=== PATIENT | male | born 1985 | race Hispanic/Latino ===

== ENCOUNTER 2017-09-13 12:41 | Emergency (ER) | payer SELFPAY ==
[2017-09-13 13:10] LABS: #Basophils 0.1 thou/uL (0.0-0.2); #Eosinphils 0.1 thou/uL (0.0-0.7); #Lymphocytes 5.5 thou/uL (1.20-3.40); #Monocytes 0.6 thou/uL (0.11-0.59); #Neutrophils 8.3 thou/uL (1.40-6.50); %Basophils 0.8 % (0.0-1.0); %Eosinophils 0.4 % (0.0-10.0); %Lymphocytes 37.9 % (21.0-51.0); %Monocytes 3.9 % (0.0-10.0); Hemoglobin 17.4 g/dL (14.0-18.0); Mean Corpuscular HGB CONC 34.5 g/dL (32.0-36.0); Mean Corpuscular Hemoglobin 31.6 pg (27.0-31.0); Mean Corpuscular Volume 91.6 fl (80.0-94.0); Mean Platelet Volume 7.2 fL (7.4-10.4); Platelet Count 269 thou/uL (130-400); RBC Distribution Width 11.8 % (11.5-14.5); Red Blood Cell (RBC) Count 5.51 mill/uL (4.70-6.10); White Blood Cell (WBC) Count 14.6 thou/uL (4.8-10.8)
[2017-09-13 13:28] LABS: CK (CPK) 72 U/L (30-200); CRP (Inflammatory) Less than 0.50 mg/dL (= or < 0.5)
[2017-09-13] MEDS ORDERED: ISOVUE-370 76%-LOCM 1 ML ONE (16:34)
[2017-09-13 17:10] LABS: Lactic Acid 2.3 mmol/L (0.5-2.2)
[2017-09-13] MEDS ORDERED: Ondansetron HCl/PF 4 MG/2 ML Vial ONE (17:30)
[2017-09-13] MEDS ORDERED: Meclizine HCl 25 MG TAB ONE (17:30)
--- NOTE | 2017-09-13 19:00 | CT ---
CT ABDOMEN AND PELVIS WITH IV CONTRAST: 09/13/17 Multiple axial tomograms obtained through the abdomen and pelvis with IV enhancement. HISTORY: Abdominal pain. Headache, dizziness and nausea and vomiting. Lungs bases are clear. Liver, spleen, and pancreas unremarkable. Adrenal glands and kidneys are unremarkable. Small bowel lo ops appear normal. Appendix appears normal. Colon unremarkable. Kidneys are unremarkable with no hydronephrosis. Aorta is unremarkable. No adenopathy. IMPRESSION: No evidence of acute process. POS: [facility]
[2017-09-13 19:03] LABS: Bilirubin Negative (Negative); Blood, Urine Negative (Negative); Clarity TURBID (Clear); Glucose, Urine (Dipstick) Negative (Negative); Leukocyte Negative (Negative); Nitrite Negative (Negative); Protein, Urine (Dipstick) Trace mg/dL (Neg-Trace); Specific Gravity, Urine 1.023 (1.002-1.036)
[2017-09-13 19:57] LABS: Lactic Acid 1.6 mmol/L (0.5-2.2)
== END 2017-09-13 20:49 | disposition home or self-care (01) ==
LOC: ERS 12:41
DX: R10.13 Epigastric pain (principal); R11.2 Nausea with vomiting, unspecified
CPT/HCPCS: 36415; 74177; 81003; 82550; 83605; 85025; 86140; 96361; 96374; J2405

== ENCOUNTER 2018-01-18 10:37 | Inpatient (IN) | payer SELFPAY ==
[2018-01-18 11:58] LABS: Hemoglobin 15.3 g/dL (14.0-18.0); Mean Corpuscular HGB CONC 34.2 g/dL (32.0-36.0); Mean Corpuscular Hemoglobin 31.6 pg (27.0-31.0); Mean Corpuscular Volume 92.4 fL (78.0-98.0); Mean Platelet Volume 7.1 fL (7.4-10.4); Platelet Count 221 thou/uL (130-400); RBC Distribution Width 11.7 % (11.5-14.5); Red Blood Cell (RBC) Count 4.86 mill/uL (4.70-6.10); White Blood Cell (WBC) Count 18.9 thou/uL (4.8-10.8)
[2018-01-18 12:16] LABS: ALT (SGPT) 12 U/L (8-55); AST (SGOT) 13 U/L (5-34); Albumin 3.9 g/dL (3.5-5.0); Alkaline Phosphatase 77 U/L (40-150); Anion Gap 14 mmol/L (10-20); BUN (Urea Nitrogen) 8 mg/dL (8.9-20.6); Bilirubin, Total 1.1 mg/dL (0.2-1.2); Calc. Creatinine Clearance 0 mL/min (70-130); Calcium 9.1 mg/dL (7.8-10.44); Carbon Dioxide 22 mmol/L (22-29); Chloride 107 mmol/L (98-107); Estimated GFR-MDRD 82; Globulin 2.5 g/dL (2.4-3.5); Glucose 185 mg/dL (70-105); Potassium 3.7 mmol/L (3.5-5.1); Protein, Total 6.4 g/dL (6.0-8.3); Sodium 139 mmol/L (136-145)
[2018-01-18 12:18] LABS: Band 15 % (5-11); Lymphocytes 7 % (21-51); MDiff Complete? YES; Monocytes 2 % (0-10); Neutrophil 62 % (42-75); PLT Morphology Comment Appears Adequate; RBC Morphology Normal; Reactive Lymphocytes 14 % (0-10)
[2018-01-18 13:08] LABS: Bilirubin Negative (Negative); Blood, Urine Small (Negative); Clarity CLEAR (Clear); Glucose, Urine (Dipstick) 100 mg/dL (Negative); Leukocyte Negative (Negative); Nitrite Negative (Negative); Protein, Urine (Dipstick) Trace mg/dL (Neg-Trace); Specific Gravity, Urine 1.023 (1.002-1.036)
[2018-01-18] MEDS ORDERED: Iopamidol 370 76% 50 ML VIAL FS ONE (13:09)
[2018-01-18] MEDS ORDERED: ISOVUE-370 76%-LOCM 1 ML ONE (13:09)
[2018-01-18 13:11] LABS: Bacteria/HPF None Seen HPF (None Seen); Hyaline Casts/LPF 0-3 HYALINE CAST LPF (0-3 Hyaline); Squamous Epithelial 0-3 HPF (0-3); WBC/HPF 0-3 HPF (0-3)
--- NOTE | 2018-01-18 14:18 | CT ---
CT OF THE ABDOMEN AND PELVIS WITH CONTRAST: Comparison: None. History: Rectal pain since Monday. Patient woke up this morning with a fever and a ball on his buttoc k cheek. Technique: Multiple contiguous axial images were obtained in a CT of the abdomen and pelvis with cont rast. PO contrast was administered. Coronal reformats were performed. FINDINGS: The liver, gallbladder, kidneys, adrenal glands, spleen, and pancreas are unremarkable. No free air, free fluid, or stranding changes are seen in the abdomen or pelvis. The large and small bowel are unremarkable. The appendix is normal. No abdominal or pelvic lymphadeno gabrielle are seen. There appears to be a small fluid collection to the left of midline in the perianal region measuring 2.7 x 0.9 cm in size. This may represent a small perirectal abscess. The visualized inferior thorax i s unremarkable. The bones are unremarkable. IMPRESSION: Left perirectal abscess. POS: [facility]
--- NOTE | 2018-01-18 15:19 | HP ---
PRIMARY CARE PHYSICIAN: [facility] call admission. REASON FOR ADMISSION: Sepsis, left perirectal abscess. HISTORY OF PRESENT ILLNESS: A 32-year-old male who came to emergency room with a complaint of rectal pain and fever since Monday. He has severe throbbing pain in his rectal area which is gett ing worse with sitting position. He is not able to sit longer because of pain with defecation. His pain is also getting worse. He was having fever intermittently at home every day. Finally, he decid ed today to come to the emergency room for evaluation. His maximum measured temperature at home was 101. He feels something ball type of thing in his rectal area. He tried to take over the counter me dication, but that did not help his pain. His pain intensity is about 8/10. He denies any trauma. He denies any nausea, vomiting or diarrhea. He denies any hematochezia. He denies any UTI symptoms. REVIEW OF SYSTEMS: The following complete review of systems was negative, unless otherwise mentioned in the HPI or below: Constitutional: Weight loss or gain, ability to conduct usual activities. Skin: Rash, itching. Eyes: Double vision, pain. ENT/Mouth: Nose bleeding, neck stiffness, pain, tenderness. Cardiovascular: Palpitations, dyspnea on exertion, orthopnea. Respiratory: Shortness of breath, wheezing, cough, hemoptysis, fever or night sweats. Gastrointestinal: Poor appetite, abdominal pain, heartburn, nausea, vomiting, constipation, or diarr hea. Genitourinary: Urgency, frequency, dysuria, nocturia. Musculoskeletal: Pain, swelling. Neurologic/Psychiatric: Anxiety, depression. Allergy/Immunologic: Skin rash, bleeding tendency. Please see my HPI for pertinent positive and negative. All other review of systems reviewed and nega tive except as mentioned in the HPI. PAST MEDICAL HISTORY: Reviewed and negative. Crohn's disease or below pilonidal cyst. PAST SURGICAL HISTORY: The patient denies any previous surgical history. PAST PSYCHIATRIC HISTORY: Reviewed and negative. FAMILY HISTORY: No strong family history of premature coronary artery disease, stroke or cancer. SOCIAL HISTORY: Patient is . He is working in construction. No history of tobacco, alcohol or illicit drug abuse. ALLERGIES: No known drug allergy. CURRENT HOME MEDICATIONS: The patient is not taking any prescribed or non-prescribed medication. EMERGENCY ROOM COURSE: Reviewed. PHYSICAL EXAMINATION: VITAL SIGNS: Currently, blood pressure 104/67, pulse 89, respiratory rate 18, temperature 98.2, satu ration 97% on room air, weight 70.3 kilograms. GENERAL: Patient is currently alert, awake, in no obvious acute distress. HEAD: Normocephalic, atraumatic. EYES: Pupils round, reactive to light. Extraocular muscle intact. ENT: Oropharynx within normal limits. Moist mucous membranes. No oral lesion, no pharyngeal erythe ma, no exudate. NECK: Supple, no JVD, no thyromegaly, no carotid bruit, no jugular venous distention. LUNGS: Clear to auscultation without any rhonchi or rales. CARDIAC: S1, S2 regular. No murmur, no gallop, no rub. ABDOMEN: Soft, bowel sounds present, nontender, nondistended. No organomegaly, no mass, no suprapub ic tenderness. BACK: Examination unremarkable, no CVA tenderness. GENITOURINARY: Rectal examination done in the emergency room and that is why deferred. As per repor t, patient does have significant tenderness in the rectal area. EXTREMITIES: Upper extremity passive movements of all joints are normal. Lower extremities: No melyssa ma. Good peripheral pulsation. SKIN: No skin rash. HEMATOLOGICAL SYSTEM: No lymphadenopathy. PSYCHIATRIC: Normal affect. NEUROLOGIC: Nonfocal examination. IMAGING DATA AND SIGNIFICANT LABORATORY DATA: CT of the abdomen and pelvis done in the emergency brady which showed 2.7 cm x 0.9 cm left perirectal abscess. CBC: WBC 18.9, hemoglobin 15.3, platelet 22 1 with bandemia. BMP: Sodium 139, potassium 3.7, chloride 107, carbon dioxide 22, anion gap 14, BUN 8, creatinine 1.06, glucose 185, calcium 9.1. LFT: AST 13, ALT 12, alkaline phosphatase 77, albumi n 3.9. Urinalysis normal. ASSESSMENT AND PLAN/IMPRESSION: 1. Sepsis, likely due to left perirectal abscess. The patient has high-grade fever, leukocytosis wi th bandemia, meets sepsis criteria. Patient will be given broad spectrum antibiotic therapy with van comycin and Zosyn, as well as IV fluid and we will follow up on culture result and change antibiotic therapy accordingly. 2. Left perirectal abscess. The patient has deep left perirectal abscess. He has severe pain. Pat ient's pain will be controlled with morphine p.r.n. basis and [place] on a p.r.n. basis. We will give him empiric broad spectrum antibiotic therapy with vancomycin and Zosyn. General Surgery will be con sulted for evaluation for necessity of I&D. 3. Glucosuria and elevated blood sugar without previous history of diabetes. I will check hemoglobi n A1c and we will repeat fasting blood sugar with the morning labs. 4. Deep venous thrombosis prophylaxis, Lovenox 40 mg subcu daily. 5. Gastrointestinal prophylaxis, Pepcid 20 mg p.o. b.i.d. 6. Code status: The patient is FULL CODE. The patient is making his decision by himself. Disposition plan based on clinical course. We are expecting patient's stay in hospital more than 2 m idnights. Plan of care discussed with the patient and family member at bedside in the emergency room .
[2018-01-18] MEDS ORDERED: Acetaminophen 325 MG TAB PO PRN (15:55)
[2018-01-18] MEDS ORDERED: Ondansetron ODT 4 MG TAB SL PRN (15:55)
[2018-01-18] MEDS ORDERED: HYDROcodone/Acetaminophen 5/325 mg Tablet PO PRN ×2 (15:55)
[2018-01-18] MEDS ORDERED: Ondansetron HCl/PF 4 MG/2 ML Vial IVP PRN ×2 (15:55→16:19)
[2018-01-18] MEDS ORDERED: Piperacillin/Tazobactam 3.375 GM in Sodium Chloride 0.9% 100 ML IVPB SCH (16:00)
[2018-01-18] MEDS ORDERED: Artificial Tears 18 DROP/0.9 ML EA EYE PRN (16:19)
[2018-01-18] MEDS ORDERED: Mag-Al 1200 mg/1200 mg/30 ML UDCUP PO PRN (16:19)
[2018-01-18] MEDS ORDERED: Zolpidem Tartrate 5 MG TAB PO PRN (16:19)
[2018-01-18] MEDS ORDERED: Senokot 8.6 MG TAB PO PRN (16:19)
[2018-01-18] MEDS ORDERED: hydrALAZINE 20 MG/ML VIAL SLOW IVP PRN (16:19)
[2018-01-18] MEDS ORDERED: Morphine 4 MG/ML VIAL SLOW IVP PRN (16:19)
[2018-01-18] MEDS ORDERED: Eucerin (Mineral Oil/Petrolatum,White) 30 gm Jar TOP PRN (16:19)
[2018-01-18] MEDS ORDERED: Loratadine 10 MG TAB PO PRN (16:19)
[2018-01-18] MEDS ORDERED: Sodium Chloride 0.65% Nasal 44 ML BOT EA NARE PRN (16:19)
[2018-01-18] MEDS ORDERED: Ondansetron ODT 4 MG TAB PO PRN (16:19)
[2018-01-18] MEDS ORDERED: Chloraseptic Spray 180 ml Bottle PO PRN (16:19)
[2018-01-18] MEDS ORDERED: Loperamide HCl 2 MG CAP PO PRN (16:19)
[2018-01-18] MEDS ORDERED: Milk Of Magnesia 30 ML UDCUP PO PRN (16:19)
[2018-01-18] MEDS ORDERED: Diabetic Tussin 200 MG/10 ML UDCUP PO PRN (16:19)
[2018-01-18] MEDS: HYDROcodone/Acetaminophen 5/325 mg Tablet PO PRN ×2 (16:47→20:59)
[2018-01-18] MEDS: Sodium Chloride 0.9% 1,000 ML IV SCH (16:52)
[2018-01-18] MEDS ORDERED: Vancomycin HCl 1 GM in Premix Bag 1 BAG IVPB SCH (17:00)
[2018-01-18] MEDS: Piperacillin/Tazobactam 4.5 GM in Sodium Chloride 0.9% 100 ML IVPB SCH (17:04)
[2018-01-18 17:13] VITALS: BMI 26.8
[2018-01-18] MEDS: Vancomycin HCl 1.25 GM in Sodium Chloride 0.9% 250 ML 250 ML IVPB SCH (18:45)
[2018-01-18] MEDS: Docusate 100 MG CAP PO SCH (20:59)
[2018-01-18] MEDS: Famotidine 20 MG TAB PO SCH (21:00)
--- NOTE | 2018-01-19 00:16 | CON ---
DATE OF CONSULTATION: 01/18/2018 REQUESTING PHYSICIAN: Dr. Loo. ATTENDING PHYSICIAN: Dr. Kennedy. HISTORY OF PRESENT ILLNESS: Mr. Miranda is a 32-year-old male, who came to the emergency room with complaint of perirectal pain over the past few days. He reports that he has had severe throbbing pain in his perirectal area which became worse with sitting or trying to have a bowel movement. He also had fever at home up to 101. He reports that he was able to feel a sharp pain when he would strain to try to have a bowel movement. Since being in the hospital, he was started on IV antibiotics. He has also used warm wet towels placed around the perirectal area, which seems to have improved his pain some. PAST MEDICAL HISTORY: None. PAST SURGICAL HISTORY: None. CURRENT MEDICATIONS: Prior to hospitalization, none. ALLERGIES: None. LABORATORY DATA: CBC: WBC 18.9, RBC 4.86, hemoglobin 15.3, hematocrit 44.9, platelets 221. Chemistry: Sodium 139, potassium 3.7, chloride 107, carbon dioxide 22, BUN 8, creatinine 1.06, glucose 185. PHYSICAL EXAMINATION: VITAL SIGNS: Temperature 99.2, pulse 96, respirations 16, O2 sat 97% on room air, blood pressure 126/76. CONSTITUTIONAL: Well-developed, well-nourished male, lying in bed, in no acute distress. ABDOMEN: Soft, nontender, nondistended. GENITOURINARY/RECTAL: Tenderness to palpation along the left side of the gluteal cleft. No redness noted. No drainage or induration. DIAGNOSTIC IMAGING: CT abdomen and pelvis with a small fluid collection to the left of the midline in the perianal region consistent with perirectal abscess. ASSESSMENT AND PLAN: A 32-year-old male with perirectal abscess. Per patient report, symptoms are improving since he has been hospitalized. Recommend continued IV antibiotics. Also recommend sitz baths. There is no urgent surgical indication at this time; however, we will continue to follow with you and proceed to surgical intervention should the patient's condition warrant. The patient was reviewed with Dr. Kennedy at the time of this consultation. [facility] CENTERKane
[2018-01-19] MEDS: Piperacillin/Tazobactam 4.5 GM in Sodium Chloride 0.9% 100 ML IVPB SCH ×4 (00:26→18:07)
[2018-01-19] MEDS: Acetaminophen 325 MG TAB PO PRN ×3 (00:26→13:56)
[2018-01-19] MEDS: Vancomycin HCl 1.25 GM in Sodium Chloride 0.9% 250 ML 250 ML IVPB SCH ×3 (02:10→18:36)
[2018-01-19] MEDS: Sodium Chloride 0.9% 1,000 ML IV SCH ×3 (03:24→18:07)
[2018-01-19 05:04] LABS: Hemoglobin A1c 4.8 % (4.0-6.0)
[2018-01-19 05:14] LABS: Anion Gap 12 mmol/L (10-20); BUN (Urea Nitrogen) 6 mg/dL (8.9-20.6); Calc. Creatinine Clearance 127 mL/min (70-130); Calcium 8.5 mg/dL (7.8-10.44); Carbon Dioxide 24 mmol/L (22-29); Chloride 107 mmol/L (98-107); Estimated GFR-MDRD Greater than 90; Glucose 122 mg/dL (70-105); Potassium 3.6 mmol/L (3.5-5.1); Sodium 139 mmol/L (136-145)
[2018-01-19 05:37] LABS: Band 17 % (5-11); Eosinophils 1 % (0-10); Hemoglobin 14.3 g/dL (14.0-18.0); Lymphocytes 22 % (21-51); MDiff Complete? YES; Mean Corpuscular HGB CONC 33.1 g/dL (32.0-36.0); Mean Corpuscular Hemoglobin 31.2 pg (27.0-31.0); Mean Corpuscular Volume 94.3 fL (78.0-98.0); Mean Platelet Volume 7.3 fL (7.4-10.4); Monocytes 8 % (0-10); Neutrophil 52 % (42-75); Platelet Count 208 thou/uL (130-400); RBC Distribution Width 11.7 % (11.5-14.5); Red Blood Cell (RBC) Count 4.59 mill/uL (4.70-6.10); White Blood Cell (WBC) Count 21.1 thou/uL (4.8-10.8)
[2018-01-19] MEDS: HYDROcodone/Acetaminophen 5/325 mg Tablet PO PRN ×3 (07:52→21:35)
[2018-01-19] MEDS: Enoxaparin Sodium 40 MG/0.4 ML SYRINGE SC SCH (09:23)
[2018-01-19] MEDS: Saccharomyces boulardii 250 MG CAP PO SCH (09:24)
[2018-01-19] MEDS: Docusate 100 MG CAP PO SCH ×2 (09:24→21:28)
[2018-01-19] MEDS: Famotidine 20 MG TAB PO SCH ×2 (09:24→21:28)
--- NOTE | 2018-01-19 11:51 | PDOC.PN ---
- Subjective Encounter Start Date: 01/19/18 Encounter Start Time: 08:00 -: old records requested/rev pt is till febrile, he has still rectal pain, subjectively he feels better - Objective Resuscitation Status: Resuscitation Status FULL:Full Resuscitation MAR Reviewed: Yes Vital Signs & Weight: Vital Signs (12 hours) Temp Pulse Resp BP Pulse Ox 01/19/18 08:34 100.9 F H 01/19/18 08:16 99.2 F 96 20 116/68 94 L 01/19/18 07:50 103.0 F H 01/19/18 04:33 100.2 F H 89 18 101/64 96 01/19/18 00:20 101.1 F H 103 H 16 96/59 L 95 Weight Weight 166 lb 4.8 oz I&O: 01/18/18 01/19/18 01/20/18 06:59 06:59 06:59 Intake Total 550 Balance 550 Result Diagrams: 01/19/18 04:36 01/19/18 04:36 Phys Exam - Physical Examination Constitutional: NAD HEENT: PERRLA, moist MMs, sclera anicteric Neck: no JVD, supple Respiratory: no wheezing, no rales, no rhonchi Cardiovascular: RRR, no significant murmur, no rub Gastrointestinal: soft, non-tender, no distention, positive bowel sounds Musculoskeletal: no edema, pulses present Neurological: non-focal, normal sensation, moves all 4 limbs Lymphatic: no nodes Psychiatric: normal affect, A&O x 3 Skin: no rash, normal turgor Dx/Plan (1) Sepsis Code(s): A41.9 - SEPSIS, UNSPECIFIED ORGANISM Status: Acute (2) Perirectal abscess Code(s): K61.1 - RECTAL ABSCESS Status: Acute - Plan cont current plan of care, continue antibiotics * continue IVF * continue vancomycin and zosyn * continue morphin for pain control * surgery consulted for evaluation for I & D * medication reviewed as below * symptomatic treatment * will monitor. Review of Systems - Review of Systems Constitutional: fever. negative: chills, sweats, weakness, malaise, other Eyes: negative: Pain, Vision Change, Conjunctivae Inflammation, Eyelid Inflammation, Redness, Other ENT: negative: Ear Pain, Ear Discharge, Nose Pain, Nose Discharge, Nose Congestion, Mouth Pain, Mouth Swelling, Throat Pain, Throat Swelling, Other Respiratory: negative: Cough, Dry, Shortness of Breath, Hemoptysis, SOB with Excertion, Pleuritic Pain, Sputum, Wheezing Cardiovascular: negative: chest pain, palpitations, orthopnea, paroxysmal nocturnal dyspnea, edema, light headedness, other Gastrointestinal: negative: Nausea, Vomiting, Abdominal Pain, Diarrhea, Constipation, Melena, Hematochezia, Other Genitourinary: negative: Dysuria, Frequency, Incontinence, Hematuria, Retention , Other Musculoskeletal: negative: Neck Pain, Shoulder Pain, Arm Pain, Back Pain, Hand Pain, Leg Pain, Foot Pain, Other Skin: negative: Rash, Lesions, Mando, Bruising, Other - Medications/Allergies Allergies/Adverse Reactions: Allergies Allergy/AdvReac Type Severity Reaction Status Date / Time No Known Allergies Allergy Unverified 01/18/18 15:54 Medications: Current Medications Acetaminophen (Tylenol) 650 mg PO Q4H PRN PRN Reason: Headache/Fever or Pain Last Admin: 01/19/18 07:51 Dose: 650 mg Hydrocodone Bitart/Acetaminophen ([place] 5/325) 1 tab PO Q4H PRN PRN Reason: Moderate Pain (4-6) Last Admin: 01/19/18 07:52 Dose: 1 tab Al Hydroxide/Mg Hydroxide (Maalox) 30 ml PO Q6H PRN PRN Reason: Heartburn or Indigestion Artificial Tears (Tears Naturale) 0 drop EA EYE PRN PRN PRN Reason: Dry Eyes Docusate Sodium (Colace) 100 mg PO BID [facility] Last Admin: 01/19/18 09:24 Dose: 100 mg Enoxaparin Sodium (Lovenox) 40 mg SC 0900 [facility] Last Admin: 01/19/18 09:23 Dose: 40 mg Famotidine (Pepcid) 20 mg PO BID [facility] Last Admin: 01/19/18 09:24 Dose: 20 mg Guaifenesin (Robitussin Sf) 200 mg PO Q4H PRN PRN Reason: Cough Hydralazine HCl (Apresoline) 10 mg SLOW IVP Q4H PRN PRN Reason: Systolic BP > 180 Sodium Chloride (Normal Saline 0.9%) 1,000 mls @ 125 mls/hr IV .Q8H [facility] Last Admin: 01/19/18 08:18 Dose: 1,000 mls Piperacillin Sod/Tazobactam (Sod 4.5 gm/ Sodium Chloride) 100 mls @ 200 mls/hr IVPB Q6HR [facility] Last Admin: 01/19/18 06:19 Dose: 100 mls Vancomycin HCl 1.25 gm/ Sodium (Chloride) 250 mls @ 166.667 mls/hr IVPB 0200, 1000,1800 [facility] Last Admin: 01/19/18 11:27 Dose: 250 mls Loperamide HCl (Imodium) 2 mg PO PRN PRN PRN Reason: Diarrhea/Loose Stools Loratadine (Claritin) 10 mg PO DAILYPRN PRN PRN Reason: Sinus Symptoms Magnesium Hydroxide (Milk Of Magnesium) 30 ml PO DAILYPRN PRN PRN Reason: Constipation Mineral Oil/White Petrolatum (Eucerin Cream) 0 gm TOP BIDPRN PRN PRN Reason: Dry Skin Miscellaneous Medication (Pharmacy To Dose) 1 each IVPB ONE PRN PRN Reason: Pharmacy to dose Stop: 02/17/18 17:08 Morphine Sulfate (Morphine) 4 mg SLOW IVP Q4H PRN PRN Reason: Pain Ondansetron HCl (Zofran Odt) 4 mg PO Q6H PRN PRN Reason: Nausea/Vomiting Ondansetron HCl (Zofran) 4 mg IVP Q6H PRN PRN Reason: Nausea/Vomiting Phenol (Chloraseptic [place] 180 Ml Bot) 0 ml PO PRN PRN PRN Reason: Sore Throat Saccharomyces Boulardii (Florastor) 250 mg PO DAILY [facility] Last Admin: 01/19/18 09:24 Dose: 250 mg Senna (Senokot) 2 tab PO HSPRN PRN PRN Reason: Constipation Sodium Chloride ([place] Nasal [place] 0.65%) 0 ml EA NARE QIDPRN PRN PRN Reason: Nasal Congestion Zolpidem Tartrate (Ambien) 5 mg PO HSPRN PRN PRN Reason: Insomnia
[2018-01-19] MEDS: Ibuprofen 600 MG TAB PO PRN (16:43)
[2018-01-19 18:12] LABS: Vancomycin, Trough 10.9 ug/mL
--- NOTE | 2018-01-19 20:59 | PRG ---
DATE OF SERVICE: 01/19/2018 SUBJECTIVE: Mr. Miranda is a 32-year-old man with perirectal abscess. CT scan of the pelvi s which was obtained yesterday reveals deep-seated small perirectal abscess, lateral to the left of m idline. PHYSICAL EXAMINATION: : However, there is no palpable flocculence. VITAL SIGNS: Today includes blood pressure 108/57, pulse is 94, respiratory rate is 16. Maximum tem perature; however, in the last 24 hours is 103 degrees Fahrenheit. LABORATORY DATA: Today includes a CBC with 21,100 white blood cells, hemoglobin and hematocrit are 1 4.3 and 43.3 respectively. Platelet count is 208,000. Metabolic profile: Sodium 139, potassium 3.6 , chloride is 107, bicarbonate is 24, BUN 6, creatinine is 0.91, glucose is 122. IMPRESSION: Left perirectal abscess. PLAN: Continue with sitz baths and broad spectrum antibiotic therapy. As this is not palpable, we w ill give consideration to having the patient evaluated by Radiology for percutaneous abscess drainage . Should clinical examination reveal flocculence; however, we will consider incision and drainage at that time. Above findings and plan discussed with the patient who indicates understanding of the in formation given. I answered his questions.
[2018-01-19] MEDS: Vancomycin HCl 1.5 GM in Sodium Chloride 0.9% 250 ML 300 ML IVPB SCH (21:32)
[2018-01-20] MEDS: Ibuprofen 600 MG TAB PO PRN ×3 (00:37→20:58)
[2018-01-20] MEDS: Piperacillin/Tazobactam 4.5 GM in Sodium Chloride 0.9% 100 ML IVPB SCH ×4 (00:37→18:32)
[2018-01-20] MEDS: Sodium Chloride 0.9% 1,000 ML IV SCH (01:05)
[2018-01-20] MEDS: Vancomycin HCl 1.5 GM in Sodium Chloride 0.9% 250 ML 300 ML IVPB SCH ×4 (04:50→22:22)
[2018-01-20 06:59] LABS: Hemoglobin 13.8 g/dL (14.0-18.0); Mean Corpuscular HGB CONC 34.5 g/dL (32.0-36.0); Mean Corpuscular Volume 92.8 fL (78.0-98.0); Mean Platelet Volume 7.1 fL (7.4-10.4); Platelet Count 217 thou/uL (130-400); RBC Distribution Width 11.5 % (11.5-14.5); Red Blood Cell (RBC) Count 4.31 mill/uL (4.70-6.10); White Blood Cell (WBC) Count 19.4 thou/uL (4.8-10.8)
[2018-01-20 07:16] LABS: Anion Gap 9 mmol/L (10-20); BUN (Urea Nitrogen) 6 mg/dL (8.9-20.6); Calc. Creatinine Clearance 132 mL/min (70-130); Carbon Dioxide 26 mmol/L (22-29); Chloride 110 mmol/L (98-107); Estimated GFR-MDRD Greater than 90; Glucose 96 mg/dL (70-105); Magnesium 2.2 mg/dL (1.6-2.6); Phosphorus 3.1 mg/dL (2.3-4.7); Potassium 4.1 mmol/L (3.5-5.1); Sodium 141 mmol/L (136-145)
[2018-01-20 07:18] LABS: Band 17 % (5-11); Lymphocytes 19 % (21-51); MDiff Complete? YES; Metamyelocyte 1 % (0-0); Monocytes 12 % (0-10); Neutrophil 51 % (42-75)
[2018-01-20] MEDS: Enoxaparin Sodium 40 MG/0.4 ML SYRINGE SC SCH (10:00)
[2018-01-20] MEDS: Saccharomyces boulardii 250 MG CAP PO SCH (10:00)
[2018-01-20] MEDS: Docusate 100 MG CAP PO SCH ×2 (10:01→20:51)
[2018-01-20] MEDS: Famotidine 20 MG TAB PO SCH ×2 (10:01→20:51)
[2018-01-20] MEDS: HYDROcodone/Acetaminophen 5/325 mg Tablet PO PRN (10:01)
--- NOTE | 2018-01-20 11:35 | PDOC.PN ---
- Subjective Encounter Start Date: 01/20/18 Encounter Start Time: 09:10 Patient seen and examined. No new complaints. No overnight events he has less fever and less pain, overall feels fine last fever was at last night midnight - Objective Resuscitation Status: Resuscitation Status FULL:Full Resuscitation Vital Signs & Weight: Vital Signs (12 hours) Temp Pulse Resp BP BP Pulse Ox 01/20/18 08:30 98.5 F 91 14 117/75 96 01/20/18 04:25 98.8 F 74 14 117/70 97 01/20/18 04:00 98.5 F 79 16 101/65 98 01/20/18 00:00 103.3 F H 104 H 18 119/80 99 Weight Weight 166 lb 4.8 oz I&O: 01/19/18 01/20/18 01/21/18 06:59 06:59 06:59 Intake Total 550 1000 Output Total 650 Balance 550 350 Result Diagrams: 01/20/18 06:38 01/20/18 06:38 Phys Exam - Physical Examination Constitutional: NAD HEENT: PERRLA, moist MMs, sclera anicteric Neck: no JVD, supple Respiratory: no wheezing, no rales, no rhonchi Cardiovascular: RRR, no significant murmur, no rub Gastrointestinal: soft, non-tender, no distention, positive bowel sounds Musculoskeletal: no edema, pulses present Neurological: non-focal, normal sensation, moves all 4 limbs Psychiatric: normal affect, A&O x 3 Skin: no rash, normal turgor Dx/Plan (1) Sepsis Code(s): A41.9 - SEPSIS, UNSPECIFIED ORGANISM Status: Acute (2) Perirectal abscess Code(s): K61.1 - RECTAL ABSCESS Status: Acute - Plan cont current plan of care, plan discussed w/ family, continue antibiotics * DC IVF * continue vancomycin and zosyn * monitor labs * follow culture * pain controlled with morphin * medication reviewed as below * symptomatic treatment * discussed with family bedside. Review of Systems - Review of Systems Constitutional: fever. negative: chills, sweats, weakness, malaise, other Eyes: negative: Pain, Vision Change, Conjunctivae Inflammation, Eyelid Inflammation, Redness, Other ENT: negative: Ear Pain, Ear Discharge, Nose Pain, Nose Discharge, Nose Congestion, Mouth Pain, Mouth Swelling, Throat Pain, Throat Swelling, Other Respiratory: negative: Cough, Dry, Shortness of Breath, Hemoptysis, SOB with Excertion, Pleuritic Pain, Sputum, Wheezing Cardiovascular: negative: chest pain, palpitations, orthopnea, paroxysmal nocturnal dyspnea, edema, light headedness, other Gastrointestinal: negative: Nausea, Vomiting, Abdominal Pain, Diarrhea, Constipation, Melena, Hematochezia, Other Genitourinary: negative: Dysuria, Frequency, Incontinence, Hematuria, Retention , Other Musculoskeletal: negative: Neck Pain, Shoulder Pain, Arm Pain, Back Pain, Hand Pain, Leg Pain, Foot Pain, Other Skin: negative: Rash, Lesions, Mando, Bruising, Other - Medications/Allergies Allergies/Adverse Reactions: Allergies Allergy/AdvReac Type Severity Reaction Status Date / Time No Known Allergies Allergy Unverified 01/18/18 15:54 Medications: Current Medications Acetaminophen (Tylenol) 650 mg PO Q4H PRN PRN Reason: Headache/Fever or Pain Last Admin: 01/19/18 13:56 Dose: 650 mg Hydrocodone Bitart/Acetaminophen ([place] 5/325) 1 tab PO Q4H PRN PRN Reason: Moderate Pain (4-6) Last Admin: 01/20/18 10:01 Dose: 1 tab Al Hydroxide/Mg Hydroxide (Maalox) 30 ml PO Q6H PRN PRN Reason: Heartburn or Indigestion Artificial Tears (Tears Naturale) 0 drop EA EYE PRN PRN PRN Reason: Dry Eyes Docusate Sodium (Colace) 100 mg PO BID [facility] Last Admin: 01/20/18 10:01 Dose: 100 mg Enoxaparin Sodium (Lovenox) 40 mg SC 0900 [facility] Last Admin: 01/20/18 10:00 Dose: 40 mg Famotidine (Pepcid) 20 mg PO BID [facility] Last Admin: 01/20/18 10:01 Dose: 20 mg Guaifenesin (Robitussin Sf) 200 mg PO Q4H PRN PRN Reason: Cough Hydralazine HCl (Apresoline) 10 mg SLOW IVP Q4H PRN PRN Reason: Systolic BP > 180 Piperacillin Sod/Tazobactam (Sod 4.5 gm/ Sodium Chloride) 100 mls @ 200 mls/hr IVPB Q6HR [facility] Last Admin: 01/20/18 07:05 Dose: 100 mls Vancomycin HCl 1.5 gm/ Sodium (Chloride) 300 mls @ 200 mls/hr IVPB 0400,1200, 2000 [facility] Last Admin: 01/20/18 04:50 Dose: 300 mls Ibuprofen (Motrin) 600 mg PO Q8H PRN PRN Reason: ANTIPYRETIC Last Admin: 01/20/18 00:37 Dose: 600 mg Loperamide HCl (Imodium) 2 mg PO PRN PRN PRN Reason: Diarrhea/Loose Stools Loratadine (Claritin) 10 mg PO DAILYPRN PRN PRN Reason: Sinus Symptoms Magnesium Hydroxide (Milk Of Magnesium) 30 ml PO DAILYPRN PRN PRN Reason: Constipation Mineral Oil/White Petrolatum (Eucerin Cream) 0 gm TOP BIDPRN PRN PRN Reason: Dry Skin Miscellaneous Medication (Pharmacy To Dose) 1 each IVPB ONE PRN PRN Reason: Pharmacy to dose Stop: 02/17/18 17:08 Morphine Sulfate (Morphine) 4 mg SLOW IVP Q4H PRN PRN Reason: Pain Ondansetron HCl (Zofran Odt) 4 mg PO Q6H PRN PRN Reason: Nausea/Vomiting Ondansetron HCl (Zofran) 4 mg IVP Q6H PRN PRN Reason: Nausea/Vomiting Phenol (Chloraseptic [place] 180 Ml Bot) 0 ml PO PRN PRN PRN Reason: Sore Throat Saccharomyces Boulardii (Florastor) 250 mg PO DAILY [facility] Last Admin: 01/20/18 10:00 Dose: 250 mg Senna (Senokot) 2 tab PO HSPRN PRN PRN Reason: Constipation Sodium Chloride ([place] Nasal [place] 0.65%) 0 ml EA NARE QIDPRN PRN PRN Reason: Nasal Congestion Zolpidem Tartrate (Ambien) 5 mg PO HSPRN PRN PRN Reason: Insomnia
--- NOTE | 2018-01-20 16:32 | PRG ---
DATE OF SERVICE: 01/20/2018 SUBJECTIVE: The patient is currently on the medical floor. He is a patient we are seeing in [facility] for perirectal abscess. The patient has been on Zosyn and vancomycin for the last 24 hours. Freddie felipe was examined yesterday and noted to have some tenderness in his left gluteus, but there was no fluc tuance felt. Overnight, the patient states that his pain has improved, though he did have another sp claudette of fever up to 103. Otherwise, he has been afebrile. The patient is tolerating a diet and his p ain is controlled. PHYSICAL EXAMINATION: CURRENT VITAL SIGNS: Temperature is 98.8, heart rate 91, blood pressure 117/75, respirations 14, oxy gen saturation 96% on room air. GENERAL: Patient is resting comfortably in bed. He appears in no distress. LABORATORY DATA AND IMAGING DATA: White blood cell count 19.4, hemoglobin 13.8, hematocrit 40.0 and platelets 217. Sodium 141, potassium 4.1, chloride 110, CO2 26, BUN 6, creatinine 0.87, magnesium 2. 2, phosphorus 3.1. There are no radiographs to review this morning. ASSESSMENT AND PLAN: 1. Left perirectal abscess. 2. Continue antibiotic therapy and sitz baths. We will reevaluate the patient tomorrow. If the maulik peters remains afebrile for 24 hours, would recommend changing him to p.o. antibiotics. Again at this time, there does not appear to be a surgical indication to attempt to drain this abscess. We will re examine him again in the morning.
[2018-01-20 21:47] LABS: Vancomycin, Trough 15.1 ug/mL
[2018-01-21] MEDS: Piperacillin/Tazobactam 4.5 GM in Sodium Chloride 0.9% 100 ML IVPB SCH ×4 (00:27→18:35)
[2018-01-21 04:37] LABS: #Eosinphils 0.1 thou/uL (0.0-0.7); #Lymphocytes 2.9 thou/uL (1.20-3.40); #Monocytes 1.8 thou/uL (0.11-0.59); #Neutrophils 13.3 thou/uL (1.40-6.50); %Basophils 0.2 % (0.0-1.0); %Eosinophils 0.6 % (0.0-10.0); %Lymphocytes 15.8 % (21.0-51.0); %Monocytes 10.1 % (0.0-10.0); %Neutrophils 73.4 % (42.0-75.0); Hemoglobin 13.3 g/dL (14.0-18.0); Mean Corpuscular HGB CONC 34.2 g/dL (32.0-36.0); Mean Corpuscular Hemoglobin 31.9 pg (27.0-31.0); Mean Corpuscular Volume 93.2 fL (78.0-98.0); Mean Platelet Volume 7.3 fL (7.4-10.4); Platelet Count 222 thou/uL (130-400); RBC Distribution Width 11.6 % (11.5-14.5); Red Blood Cell (RBC) Count 4.18 mill/uL (4.70-6.10); White Blood Cell (WBC) Count 18.2 thou/uL (4.8-10.8)
[2018-01-21] MEDS: Vancomycin HCl 1.5 GM in Sodium Chloride 0.9% 250 ML 300 ML IVPB SCH ×4 (04:53→22:07)
[2018-01-21 04:55] LABS: Vancomycin, Trough 5.5 ug/mL
[2018-01-21 04:57] LABS: Anion Gap 12 mmol/L (10-20); BUN (Urea Nitrogen) 7 mg/dL (8.9-20.6); Calc. Creatinine Clearance 137 mL/min (70-130); Calcium 8.8 mg/dL (7.8-10.44); Carbon Dioxide 22 mmol/L (22-29); Chloride 110 mmol/L (98-107); Estimated GFR-MDRD Greater than 90; Glucose 114 mg/dL (70-105); Magnesium 2.3 mg/dL (1.6-2.6); Phosphorus 3.4 mg/dL (2.3-4.7); Potassium 3.4 mmol/L (3.5-5.1); Sodium 141 mmol/L (136-145)
[2018-01-21] MEDS: HYDROcodone/Acetaminophen 5/325 mg Tablet PO PRN ×3 (04:59→14:47)
[2018-01-21] MEDS ORDERED: Potassium Chloride 20 MEQ TAB PO SCH (08:30)
[2018-01-21] MEDS: Enoxaparin Sodium 40 MG/0.4 ML SYRINGE SC SCH (09:24)
[2018-01-21] MEDS: Docusate 100 MG CAP PO SCH ×2 (09:24→19:33)
[2018-01-21] MEDS: Saccharomyces boulardii 250 MG CAP PO SCH (09:24)
[2018-01-21] MEDS: Famotidine 20 MG TAB PO SCH ×2 (09:24→19:33)
--- NOTE | 2018-01-21 10:20 | PDOC.PN ---
- Subjective Encounter Start Date: 01/21/18 Encounter Start Time: 09:30 Patient seen and examined. No new complaints. No overnight events his fever is reducing, he has less pain, wbc is improving - Objective Resuscitation Status: Resuscitation Status FULL:Full Resuscitation MAR Reviewed: Yes Vital Signs & Weight: Vital Signs (12 hours) Temp Pulse Resp BP BP Pulse Ox 01/21/18 08:00 98.6 F 71 18 121/82 96 01/21/18 04:00 99.2 F 75 16 110/73 99 01/21/18 00:00 98.2 F 81 16 107/67 96 Weight Weight 166 lb 4.8 oz I&O: 01/20/18 01/21/18 01/22/18 06:59 06:59 06:59 Intake Total 1000 3610 Output Total 650 Balance 350 3610 Result Diagrams: 01/21/18 04:14 01/21/18 04:14 Phys Exam - Physical Examination Constitutional: NAD HEENT: PERRLA, moist MMs, sclera anicteric Neck: no JVD, supple Respiratory: no wheezing, no rales, no rhonchi Cardiovascular: RRR, no significant murmur, no rub Gastrointestinal: soft, non-tender, no distention, positive bowel sounds Musculoskeletal: no edema, pulses present Neurological: non-focal, normal sensation Psychiatric: normal affect, A&O x 3 Skin: no rash, normal turgor Dx/Plan (1) Sepsis Code(s): A41.9 - SEPSIS, UNSPECIFIED ORGANISM Status: Acute (2) Perirectal abscess Code(s): K61.1 - RECTAL ABSCESS Status: Acute (3) Hypokalemia Code(s): E87.6 - HYPOKALEMIA Status: Acute - Plan cont current plan of care, plan discussed w/ family, continue antibiotics * continue vancomycin and zosyn * pain controlled * discussed with family * replace potassium * monitor cbc. Review of Systems - Review of Systems Constitutional: fever. negative: chills, sweats, weakness, malaise, other ENT: negative: Ear Pain, Ear Discharge, Nose Pain, Nose Discharge, Nose Congestion, Mouth Pain, Mouth Swelling, Throat Pain, Throat Swelling, Other Respiratory: negative: Cough, Dry, Shortness of Breath, Hemoptysis, SOB with Excertion, Pleuritic Pain, Sputum, Wheezing Cardiovascular: negative: chest pain, palpitations, orthopnea, paroxysmal nocturnal dyspnea, edema, light headedness, other Gastrointestinal: negative: Nausea, Vomiting, Abdominal Pain, Diarrhea, Constipation, Melena, Hematochezia, Other Genitourinary: negative: Dysuria, Frequency, Incontinence, Hematuria, Retention , Other Musculoskeletal: negative: Neck Pain, Shoulder Pain, Arm Pain, Back Pain, Hand Pain, Leg Pain, Foot Pain, Other - Medications/Allergies Allergies/Adverse Reactions: Allergies Allergy/AdvReac Type Severity Reaction Status Date / Time No Known Allergies Allergy Unverified 01/18/18 15:54 Medications: Current Medications Acetaminophen (Tylenol) 650 mg PO Q4H PRN PRN Reason: Headache/Fever or Pain Last Admin: 01/19/18 13:56 Dose: 650 mg Hydrocodone Bitart/Acetaminophen ([place] 5/325) 1 tab PO Q4H PRN PRN Reason: Moderate Pain (4-6) Last Admin: 01/21/18 09:31 Dose: 1 tab Al Hydroxide/Mg Hydroxide (Maalox) 30 ml PO Q6H PRN PRN Reason: Heartburn or Indigestion Artificial Tears (Tears Naturale) 0 drop EA EYE PRN PRN PRN Reason: Dry Eyes Docusate Sodium (Colace) 100 mg PO BID [facility] Last Admin: 01/21/18 09:24 Dose: 100 mg Enoxaparin Sodium (Lovenox) 40 mg SC 0900 [facility] Last Admin: 01/21/18 09:24 Dose: 40 mg Famotidine (Pepcid) 20 mg PO BID [facility] Last Admin: 01/21/18 09:24 Dose: 20 mg Guaifenesin (Robitussin Sf) 200 mg PO Q4H PRN PRN Reason: Cough Hydralazine HCl (Apresoline) 10 mg SLOW IVP Q4H PRN PRN Reason: Systolic BP > 180 Piperacillin Sod/Tazobactam (Sod 4.5 gm/ Sodium Chloride) 100 mls @ 200 mls/hr IVPB Q6HR [facility] Last Admin: 01/21/18 04:53 Dose: 100 mls Vancomycin HCl 1.5 gm/ Sodium (Chloride) 300 mls @ 200 mls/hr IVPB 0500,1300, 2100 [facility] Last Admin: 01/21/18 04:53 Dose: 300 mls Ibuprofen (Motrin) 600 mg PO Q8H PRN PRN Reason: ANTIPYRETIC Last Admin: 01/20/18 20:58 Dose: 600 mg Loperamide HCl (Imodium) 2 mg PO PRN PRN PRN Reason: Diarrhea/Loose Stools Loratadine (Claritin) 10 mg PO DAILYPRN PRN PRN Reason: Sinus Symptoms Magnesium Hydroxide (Milk Of Magnesium) 30 ml PO DAILYPRN PRN PRN Reason: Constipation Mineral Oil/White Petrolatum (Eucerin Cream) 0 gm TOP BIDPRN PRN PRN Reason: Dry Skin Miscellaneous Medication (Pharmacy To Dose) 1 each IVPB ONE PRN PRN Reason: Pharmacy to dose Stop: 02/17/18 17:08 Morphine Sulfate (Morphine) 4 mg SLOW IVP Q4H PRN PRN Reason: Pain Ondansetron HCl (Zofran Odt) 4 mg PO Q6H PRN PRN Reason: Nausea/Vomiting Ondansetron HCl (Zofran) 4 mg IVP Q6H PRN PRN Reason: Nausea/Vomiting Phenol (Chloraseptic [place] 180 Ml Bot) 0 ml PO PRN PRN PRN Reason: Sore Throat Potassium Chloride (K-Dur) 40 meq PO NOW [facility] Stop: 01/21/18 10:30 Last Admin: 01/21/18 09:24 Dose: 40 meq Saccharomyces Boulardii (Florastor) 250 mg PO DAILY [facility] Last Admin: 01/21/18 09:24 Dose: 250 mg Senna (Senokot) 2 tab PO HSPRN PRN PRN Reason: Constipation Sodium Chloride ([place] Nasal [place] 0.65%) 0 ml EA NARE QIDPRN PRN PRN Reason: Nasal Congestion Zolpidem Tartrate (Ambien) 5 mg PO HSPRN PRN PRN Reason: Insomnia
[2018-01-22] MEDS: Piperacillin/Tazobactam 4.5 GM in Sodium Chloride 0.9% 100 ML IVPB SCH ×2 (00:31→05:35)
--- NOTE | 2018-01-22 01:35 | PRG ---
DATE OF SERVICE: 01/22/2018 SUBJECTIVE: The patient remained on the surgical floor. He is a patient we are seeing in consultati on for perirectal abscess. He remains on Zosyn and vancomycin. Review of his vitals shows that he h as been afebrile for greater than 24 hours. We would recommend that he be transitioned to p.o. antib iotics and if he tolerates this, he could be discharged. Patient states that he is tolerating a diet and his pain is controlled. PHYSICAL EXAMINATION: VITAL SIGNS: Temperature is 99.1, heart rate 88, blood pressure 126/78, respirations 18, oxygen satu ration 96% on room air. GENERAL: Patient is resting comfortably in bed. He is awake, alert, and oriented, has no complaints at this time. LABORATORY DATA: White blood cell count 18.2, hemoglobin 13.3, hematocrit 39.0, platelets 222. Sodi um 141, potassium 3.4, chloride 110, CO2 is 22, BUN 7, creatinine 0.84, glucose 114, magnesium 2.3, p hosphorus 3.4. ASSESSMENT AND PLAN: Left perirectal abscess. Plan will be to continue antibiotic therapy. Again, recommend the patient transitioned to p.o. and continue Sitz bath. We will examine the patient tomor row and if he continues with this improvement, we will recommend that he be discharged with followup with one of the general surgeons. The evaluation, examination were discussed with Dr. Brent mendoza.
[2018-01-22 05:44] LABS: Vancomycin, Trough 19.2 ug/mL
[2018-01-22] MEDS: Vancomycin HCl 1.5 GM in Sodium Chloride 0.9% 250 ML 300 ML IVPB SCH (07:20)
[2018-01-22 07:38] LABS: #Basophils 0.1 thou/uL (0.0-0.2); #Eosinphils 0.2 thou/uL (0.0-0.7); #Lymphocytes 3.2 thou/uL (1.20-3.40); #Monocytes 1.9 thou/uL (0.11-0.59); #Neutrophils 12.9 thou/uL (1.40-6.50); %Basophils 0.4 % (0.0-1.0); %Lymphocytes 17.5 % (21.0-51.0); %Monocytes 10.3 % (0.0-10.0); %Neutrophils 70.9 % (42.0-75.0); Hemoglobin 13.7 g/dL (14.0-18.0); Mean Corpuscular Hemoglobin 32.7 pg (27.0-31.0); Mean Corpuscular Volume 93.6 fL (78.0-98.0); Mean Platelet Volume 7.6 fL (7.4-10.4); Platelet Count 255 thou/uL (130-400); RBC Distribution Width 11.5 % (11.5-14.5); Red Blood Cell (RBC) Count 4.18 mill/uL (4.70-6.10); White Blood Cell (WBC) Count 18.2 thou/uL (4.8-10.8)
[2018-01-22 07:48] LABS: Anion Gap 11 mmol/L (10-20); BUN (Urea Nitrogen) 5 mg/dL (8.9-20.6); CRP (Inflammatory) 10.47 mg/dL (= or < 0.5); Calc. Creatinine Clearance 128 mL/min (70-130); Calcium 9.2 mg/dL (7.8-10.44); Carbon Dioxide 26 mmol/L (22-29); Chloride 107 mmol/L (98-107); Estimated GFR-MDRD Greater than 90; Glucose 83 mg/dL (70-105); Potassium 3.8 mmol/L (3.5-5.1); Sodium 140 mmol/L (136-145)
[2018-01-22] MEDS: HYDROcodone/Acetaminophen 5/325 mg Tablet PO PRN (07:59)
[2018-01-22] MEDS: Saccharomyces boulardii 250 MG CAP PO SCH (08:01)
[2018-01-22] MEDS: Enoxaparin Sodium 40 MG/0.4 ML SYRINGE SC SCH (08:01)
[2018-01-22] MEDS: Famotidine 20 MG TAB PO SCH (08:01)
[2018-01-22] MEDS: Docusate 100 MG CAP PO SCH (08:01)
--- NOTE | 2018-01-22 10:44 | CON ---
DATE OF CONSULTATION: 01/22/2018 CHIEF COMPLAINT: Perirectal abscess. HISTORY OF PRESENT ILLNESS: This is a requested second opinion consultation on this pleasant 32-year -old gentleman. He presented to the emergency room on 01/18/2018. He is currently hospital day #5 from treatment for this. He notes that he had developed rectal pain about 3 days before he p resented to the hospital. By that time, he had severe rectal pain. He was also febrile. A CT scan was obtained in the emergency room revealing a relatively subtle perirectal abscess with some inflamm atory change felt to be to the left of midline within the rectum. The patient was admitted and place d on IV antibiotics. Surgical consultation was obtained and surgery intervention was not recommended as the abscess was felt to be relatively high within the rectum and was not felt to be amenable to s urgical drainage. The patient has been on Zosyn and vancomycin since admission. Initially he had a fairly high fever w ith a temperature up to 103.3 on 01/20/2018. Subsequent to then (over the last 48 hours) he has been afebrile. His temperature has been less than 100 for the last couple of days. He notes that his pa in, which was severe initially has resolved entirely. He is having bowel movements with no discomfor t. His white blood cell count was 18.9 upon presentation. It went up as high as 21.1. It is curren tly 18.2. PAST MEDICAL HISTORY: Negative. He does not see a physician and has never had any significant medic al problems in his past. PAST SURGICAL HISTORY: None. CURRENT MEDICATIONS: None. ALLERGIES: None. PERSONAL AND SOCIAL HISTORY: He is with 3 children. He works in construction. He does not smoke and drinks alcohol rarely. REVIEW OF SYSTEMS: Otherwise, unremarkable. FAMILY HISTORY: Noncontributory. PHYSICAL EXAMINATION: VITAL SIGNS: Vital signs this morning are temperature 98.6, pulse 76, blood pressure 118/76. GENERA L: Well-developed, well-nourished, pleasant male resting in bed in no discomfort at all. H e is alert and oriented x3. HEENT: Unremarkable. NECK: Supple, without mass or tenderness. LUNGS: Clear to auscultation throughout. CARDIAC: Regular rate and rhythm without murmur. ABDOMEN: Soft, nontender, nondistended. RECTAL: There is no obvious external perianal abnormality. There is a slight suggestion of mild fir mness to the right of midline in the perianal area, but certainly no area of significant induration o r fluctuance. Digital rectal exam is performed without finding of any palpable focus of tenderness, mass, or fluctuance. ASSESSMENT: The patient with a resolving suspected perirectal abscess. As I did not perform his ini tial rectal exam, I am not certain whether there has been resolution of a higher rectal process or no t. Either way, since his pain has resolved and his fever has resolved, I believe he is stable for mauri tapia. PLAN: I would recommend discharging him on Cipro and Flagyl for 10 days with a followup visit to see myself at that time. I have given him my card and asked him to call me if he develops any increasin g discomfort or fever.
[2018-01-22 11:27] VITALS: BP 124/80; TEMP 98.1
--- NOTE | 2018-01-22 11:35 | PDOC.PN ---
- Subjective Encounter Start Date: 01/22/18 Encounter Start Time: 09:40 pt wanted to get second opinion, dr mary show and recommended discharge and outpt follow up his rectal pain is less, he is afebrile - Objective Resuscitation Status: Resuscitation Status FULL:Full Resuscitation MAR Reviewed: Yes Vital Signs & Weight: Vital Signs (12 hours) Temp Pulse Resp BP Pulse Ox 01/22/18 11:26 98.1 F 73 16 124/80 96 01/22/18 08:00 98.6 F 76 18 118/76 97 01/22/18 04:00 98.9 F 74 18 108/67 95 Weight Weight 166 lb 4.8 oz I&O: 01/21/18 01/22/18 01/23/18 06:59 06:59 06:59 Intake Total 3610 3650 240 Balance 3610 3650 240 Result Diagrams: 01/22/18 04:49 01/22/18 04:49 Phys Exam - Physical Examination Constitutional: NAD HEENT: PERRLA, moist MMs, sclera anicteric Neck: no JVD, supple Respiratory: no wheezing, no rales, no rhonchi Cardiovascular: RRR, no significant murmur, no rub Gastrointestinal: soft, non-tender, no distention, positive bowel sounds Musculoskeletal: no edema, pulses present Neurological: non-focal, normal sensation, moves all 4 limbs Psychiatric: normal affect, A&O x 3 Skin: no rash, normal turgor Dx/Plan (1) Sepsis Code(s): A41.9 - SEPSIS, UNSPECIFIED ORGANISM Status: Acute (2) Perirectal abscess Code(s): K61.1 - RECTAL ABSCESS Status: Acute (3) Hypokalemia Code(s): E87.6 - HYPOKALEMIA Status: Acute - Plan cont current plan of care, plan discussed w/ family, continue antibiotics * medication reviewed as below * symptomatic treatment * as per surgeon, dc to home * see discharge summery * follow up with surgeon outpt * discussed with pt and and both agreed to go home. Review of Systems - Review of Systems Eyes: negative: Pain, Vision Change, Conjunctivae Inflammation, Eyelid Inflammation, Redness, Other ENT: negative: Ear Pain, Ear Discharge, Nose Pain, Nose Discharge, Nose Congestion, Mouth Pain, Mouth Swelling, Throat Pain, Throat Swelling, Other Respiratory: negative: Cough, Dry, Shortness of Breath, Hemoptysis, SOB with Excertion, Pleuritic Pain, Sputum, Wheezing Cardiovascular: negative: chest pain, palpitations, orthopnea, paroxysmal nocturnal dyspnea, edema, light headedness, other Gastrointestinal: negative: Nausea, Vomiting, Abdominal Pain, Diarrhea, Constipation, Melena, Hematochezia, Other Genitourinary: negative: Dysuria, Frequency, Incontinence, Hematuria, Retention , Other Musculoskeletal: negative: Neck Pain, Shoulder Pain, Arm Pain, Back Pain, Hand Pain, Leg Pain, Foot Pain, Other Skin: negative: Rash, Lesions, Mando, Bruising, Other - Medications/Allergies Allergies/Adverse Reactions: Allergies Allergy/AdvReac Type Severity Reaction Status Date / Time No Known Allergies Allergy Unverified 01/18/18 15:54 Medications: Current Medications Acetaminophen (Tylenol) 650 mg PO Q4H PRN PRN Reason: Headache/Fever or Pain Last Admin: 01/19/18 13:56 Dose: 650 mg Hydrocodone Bitart/Acetaminophen ([place] 5/325) 1 tab PO Q4H PRN PRN Reason: Moderate Pain (4-6) Last Admin: 01/22/18 07:59 Dose: 1 tab Al Hydroxide/Mg Hydroxide (Maalox) 30 ml PO Q6H PRN PRN Reason: Heartburn or Indigestion Artificial Tears (Tears Naturale) 0 drop EA EYE PRN PRN PRN Reason: Dry Eyes Docusate Sodium (Colace) 100 mg PO BID [facility] Last Admin: 01/22/18 08:01 Dose: 100 mg Enoxaparin Sodium (Lovenox) 40 mg SC 0900 [facility] Last Admin: 01/22/18 08:01 Dose: 40 mg Famotidine (Pepcid) 20 mg PO BID [facility] Last Admin: 01/22/18 08:01 Dose: 20 mg Guaifenesin (Robitussin Sf) 200 mg PO Q4H PRN PRN Reason: Cough Hydralazine HCl (Apresoline) 10 mg SLOW IVP Q4H PRN PRN Reason: Systolic BP > 180 Piperacillin Sod/Tazobactam (Sod 4.5 gm/ Sodium Chloride) 100 mls @ 200 mls/hr IVPB Q6HR [facility] Last Admin: 01/22/18 05:35 Dose: 100 mls Vancomycin HCl 1.5 gm/ Sodium (Chloride) 300 mls @ 200 mls/hr IVPB Q8HR [facility] Last Admin: 01/22/18 07:20 Dose: 300 mls Ibuprofen (Motrin) 600 mg PO Q8H PRN PRN Reason: ANTIPYRETIC Last Admin: 01/20/18 20:58 Dose: 600 mg Loperamide HCl (Imodium) 2 mg PO PRN PRN PRN Reason: Diarrhea/Loose Stools Loratadine (Claritin) 10 mg PO DAILYPRN PRN PRN Reason: Sinus Symptoms Magnesium Hydroxide (Milk Of Magnesium) 30 ml PO DAILYPRN PRN PRN Reason: Constipation Mineral Oil/White Petrolatum (Eucerin Cream) 0 gm TOP BIDPRN PRN PRN Reason: Dry Skin Miscellaneous Medication (Pharmacy To Dose) 1 each IVPB ONE PRN PRN Reason: Pharmacy to dose Stop: 02/17/18 17:08 Morphine Sulfate (Morphine) 4 mg SLOW IVP Q4H PRN PRN Reason: Pain Ondansetron HCl (Zofran Odt) 4 mg PO Q6H PRN PRN Reason: Nausea/Vomiting Ondansetron HCl (Zofran) 4 mg IVP Q6H PRN PRN Reason: Nausea/Vomiting Phenol (Chloraseptic [place] 180 Ml Bot) 0 ml PO PRN PRN PRN Reason: Sore Throat Saccharomyces Boulardii (Florastor) 250 mg PO DAILY [facility] Last Admin: 01/22/18 08:01 Dose: 250 mg Senna (Senokot) 2 tab PO HSPRN PRN PRN Reason: Constipation Sodium Chloride ([place] [employer] Nasal [place] 0.65%) 0 ml EA NARE QIDPRN PRN PRN Reason: Nasal Congestion Zolpidem Tartrate (Ambien) 5 mg PO HSPRN PRN PRN Reason: Insomnia
--- NOTE | 2018-01-22 12:34 | DIS ---
PRIMARY CARE PHYSICIAN: [facility] [place] call admission. DATE OF ADMISSION: 01/18/2018 DATE OF DISCHARGE: 01/22/2018 DISCHARGE DISPOSITION: Home. PRIMARY DISCHARGE DIAGNOSES: 1. Sepsis. 2. Perirectal abscess. 3. Hypokalemia, corrected. SECONDARY DISCHARGE DIAGNOSIS: None. PRIMARY PROCEDURE/OPERATION: None. RADIOLOGICAL INVESTIGATION: Abdomen and pelvis CT scan showed perirectal abscess. SIGNIFICANT LABORATORY DATA: WBC 18.2, hemoglobin 13.7, platelet 255. Sodium 140, potassium 3.8, BU N 5, creatinine 0.90, calcium 9.2. CRP 10.47. LFT normal. Urinalysis normal. Blood culture negati ve. DISCHARGE MEDICATIONS: Cipro 500 mg p.o. b.i.d. for 10 days, Flagyl 500 mg p.o. t.i.d. for 10 days. CONTRAINDICATIONS: None. CODE STATUS: FULL CODE. INPATIENT CONSULTANTS: Dr. Kennedy was following while in hospital. Dr. Proctor also evaluated as a s econd opinion. TEST RESULTS PENDING ON DISCHARGE: None. ALLERGIES: No known drug allergy. DISCHARGE PLAN: Post hospital, the patient will follow up with Dr. Proctor as instructed. HOSPITAL COURSE: A 32-year-old male who was admitted by me on 01/18/2018. Please see my HP I for further detail. The patient was having severe rectal pain which was gradually getting worse, a ssociated with fever and chills. He was given antibiotic on outpatient basis, but did not improve an d that is why he came to the emergency room. In the emergency room, he had CT of the abdomen and pel vis which confirmed a perirectal abscess. It was deep enough to be drained. General Surgery was con sulted and they recommended admission to Medicine Service. Dr. Kennedy was not thinking that patient n eed any surgical intervention. He recommended to continue antibiotic therapy. If it does not improv e, then he will need a radiological guidance drainage. We continued entire hospital course with vanc omycin and Zosyn and his white count had only marginal improvement. His pain is clinically much bett er. The patient's family member wanted to get second opinion from surgeon and that is why Dr. Willson s saw this patient and he recommended discharge on oral Cipro and Flagyl and he will follow up with t he patient on an outpatient basis. The patient and was comfortable going home based on Dr. Georges shukla recommendations. All new medication prescriptions given to him. The patient is seen and examined at bedside today. Please see my progress note from today for furthe r detail. Total time spent on discharge was 31 minutes.
== END 2018-01-22 11:37 | disposition home or self-care (01) | DRG 872 ==
LOC: ERS 10:37 → T4-A 14:40 → ERS 15:48
PROVIDERS: ADMIT Internal Medicine; ATTEND Internal Medicine
DX: A41.9 Sepsis, unspecified organism (principal); K61.1 Rectal abscess; E87.6 Hypokalemia; R81 Glycosuria
CPT/HCPCS: 36415; 74177; 80048; 80053; 80202; 81003; 81015; 83036; 83735; 84100; 85025; 86140; 87040; J1650; J2543; J3370; J7050

== ENCOUNTER 2018-02-26 14:40 | Day surgery (SDC) | payer SELFPAY ==
--- NOTE | 2018-02-26 14:35 | HP ---
DATE OF ADMISSION: 02/26/2018 CHIEF COMPLAINT: Perirectal pain. HISTORY OF PRESENT ILLNESS: The patient is a 32-year-old male. He is known to myself from prior evaluation of perirectal abscess. He was hospitalized from 01/18/2018 until 01/22/2018 with ana felipe same symptoms. He had severe perirectal pain. A CT scan revealed evidence of a subtle abscess to the left of midline. He was evaluated by another surgeon and no surgery was recommended. Instead, marcela felipe was treated with IV antibiotics. He completed a course of IV antibiotics and a course of oral anti biotics as well. He had an absolutely unremarkable pain when I last saw him in the office on 018. He notes that about 4 days ago he started having recurrent problems with pain in the same area. He n oted pain with bowel movements. He also ran a fever a day or two ago. He was started on Flagyl and Cipro a couple days ago and he notes no significant improvement since he started on this. He present s today for further evaluation and treatment. PAST MEDICAL HISTORY: Significant for a perirectal abscess about a month ago and possibly hyperchole sterolemia. PAST SURGICAL HISTORY: None. CURRENT MEDICATIONS: He is currently taking Cipro and Flagyl, but no other medications. ALLERGIES: No known drug allergies. PERSONAL/SOCIAL HISTORY: He is with children. He does not smoke nor does he drink alcohol s ignificantly. REVIEW OF SYSTEMS: Otherwise, unremarkable. FAMILY HISTORY: Noncontributory. PHYSICAL EXAMINATION: VITAL SIGNS: He is afebrile, pulse is 67, blood pressure 117/68. GENERAL: He is a well-developed, well-nourished, pleasant male, in obvious distress. He is alert and oriented x3. HEAD, EYES, EARS, NOSE, AND THROAT: Unremarkable. NECK: Supple, without mass or tenderness. LUNGS: Clear to auscultation throughout. CARDIAC: Regular rate and rhythm without murmur. ABDOMEN: Soft, nontender, nondistended. RECTAL: He has no obvious external anal abnormality. Palpation in the perianal soft tissue reveals an area of induration on the right side of the rectum at about the 9 o'clock radiant. He, however, h as significant tenderness with palpation anteriorly and to the left side as well. I am unable to pal montemayor definite areas of induration in these areas. Digital rectal exam was performed and there is sig nificant palpable tenderness within the rectum. It is difficult to discern a bulging abscess cavity, however, I locally anesthetized the skin over the area of induration to the right of the anus. I attempted to aspirate this area using an 18-gauge needle and perhaps I encountered a tiny pocket of some purulent material. However, when I pressed anterior to the anus, over the perineum, purulent material rolled out through the tract that I have created with my needle indicating an abscess cavity that communica morales with this. ASSESSMENT: Patient with recurrent perianal/perirectal abscess. This may have horseshoe confirmatio n. Even though there is no obvious cutaneous involvement. PLAN: At this point, I would recommend examination under anesthesia in the operating room. I will e xamine the rectum internally to see if there is evidence of infection internally that can be drained. He may also require drainage through multiple incisions depending upon the exact location of the ab scess. I have discussed all this with the patient and his . They understand and agree to procee d with surgery at this time.
[2018-02-26] MEDS ORDERED: Fentanyl 100 MCG/2 ML VIAL ONE ×2 (15:31→17:06)
[2018-02-26] MEDS ORDERED: Sodium Chloride 0.9% 100 ML ONE (17:08)
[2018-02-26] MEDS ORDERED: Ketorolac Tromethamine 30 MG/ML VIAL ONE (17:08)
[2018-02-26] MEDS ORDERED: cefOXitin 2 GM VIAL ONE (17:08)
[2018-02-26] MEDS ORDERED: Lidocaine 2% Jelly 5 ML TUBE ONE (17:16)
[2018-02-26] MEDS ORDERED: Bupivacaine/Epinephrine 0.25% 30 ML VIAL ONE (17:16)
[2018-02-26] MEDS ORDERED: Midazolam HCl 2 mg/2 ml Vial ONE (17:32)
[2018-02-26] MEDS ORDERED: HYDROcodone/Acetaminophen 5/325 mg Tablet ONE (19:55)
--- NOTE | 2018-02-27 09:57 | OP ---
DATE OF PROCEDURE: 02/26/2018 PREOPERATIVE DIAGNOSIS: Perirectal abscess. POSTOPERATIVE DIAGNOSIS: Perirectal abscess, horseshoe type abscess. OPERATION PERFORMED: Complex incision and drainage of perirectal abscess with placement of Prakash hollis. SURGEON: Dr. Ben Proctor ANESTHESIA: General endotracheal. INDICATIONS: The patient is a 32-year-old otherwise healthy male. He had been treated nons urgically for a perirectal abscess about a month ago. He returns at this time with recurrent symptom s of perirectal pain. He still had some minimal external evidence of the abscess, but has excessive tenderness to examination. OPERATIVE PROCEDURE IN DETAIL: Informed consent was obtained. The patient was taken to the operatin g room where general endotracheal anesthesia obtained with the patient in the supine position. He wa s then placed into dorsal lithotomy using candy cane stirrups. Perianal area was trimmed of hair, pr epped with Betadine, and draped in sterile fashion. Local anesthetic was infiltrated using 0.25% Mar renee with epinephrine circumferentially and intersphincteric. When the patient was placed up into lithotomy he began having spontaneous bloody/purulent drainage co ramses from his anus. This was swabbed and sent for culture. Upon initiating inspection, this all leni eared to be coming from an opening in the posterior midline of the anus. When I pressed overlying th e perineum, however, purulent material was expressed through the posterior midline, indicating a trac t that extended from anterior to the posterior aspect of the perianal/perirectal area. I initially o pened the opening in the posterior midline further. This appeared to be coming out through the sphin cter. I was able to find a communication to the patient's right towards the 9 o'clock radian. When I palpated in the perineum, again, I was able to express purulence. I therefore decided to create a counterincision over the 12 o'clock radian. Additional local anesthetic was infiltrated and a longit udinal incision was created and dissection was carried through skin and subcutaneous tissue and I was quickly able to enter the abscess cavity. This proved to be substantially larger than was apparent. It extended anteriorly towards the base of the scrotum. I was also able to palpate a tract extendi ng over towards the right side in the 9 o'clock radian. I was able to pass a hemostat through this t ract and a counter incision was created about the 9 o'clock radian. I ran a quarter inch Prakash bettina in through this tract and secured it to itself with 3-0 nylon suture. I could not identify a tract e xtending over the patient's left either from the anterior or the posterior incision. Because of the intersphincteric nature of the opening posteriorly I decided not to place a drain through this, gracein g that this would close spontaneously and the drainage would continue through the other two openings. I irrigated all three openings. I pressed in all directions and could elicit no more purulence. A dry gauze dressing was placed externally as well as mesh pants. There were no complications. The p atient tolerated the procedure well and was taken to recovery room in stable condition. I will see h im back in a week and hopefully be able to remove his Prakash drain at that time.
== END 2018-02-26 21:00 | disposition home or self-care (01) ==
LOC: SDC 14:40
PROVIDERS: ATTEND Specialist
PROC: 0D9P3ZZ Drainage of Rectum, Percutaneous Approach (ICD-10-PCS; principal; 2018-02-26)
DX: K61.1 Rectal abscess (principal)
CPT/HCPCS: 87070; 87077; 87186; 87205; J0131; J0694; J1885; J2250; J3010; J7050

== ENCOUNTER 2020-03-20 09:10 | Outpatient (CLI) | payer OTHER ==
--- NOTE | 2020-03-20 10:27 | CT ---
CT Stone Protocol: 03/20/2020 9:23 AM HISTORY: Left flank pain for 2 weeks and hematuria COMPARISON: None. TECHNIQUE: Multiple contiguous axial images were obtained and a CT of the abdomen and pelvis without IV contrast . Coronal and sagittal reformats were performed. FINDINGS: This examination is limited for the evaluation of solid organs and vascular structures due to the lac k of intravenous contrast. Lower Chest: within normal limits. Abdomen: Liver: Mild diffuse fatty infiltration Bile Ducts: Normal caliber. Gallbladder: No calcified gallstones. Normal caliber wall. Pancreas: within normal limits. Spleen: within normal limits. Adrenals: within normal limits. Kidneys: Nonobstructing 8 mm right renal calcification. No left renal calcifications. Pelvis: Reproductive Organs: No pelvic masses. Ureters: within normal limits. Bladder: within normal limits. Bowel: Normal caliber. Mesenteric Lymph Nodes: No enlarged mesenteric lymph nodes. Peritoneum: No ascites or free air, no fluid collection. Vessels: Normal caliber aorta Retroperitoneum: within normal limits. Abdominal Wall: within normal limits. Bones: Unremarkable. IMPRESSION: 1. Nonobstructing right renal calcification 2. Fatty liver
== END 2020-03-20 09:11 | disposition home or self-care (01) ==
LOC: SCSCT 09:10
PROVIDERS: ATTEND Family Medicine
DX: R10.9 Unspecified abdominal pain (principal); N28.89 Other specified disorders of kidney and ureter; K76.0 Fatty (change of) liver, not elsewhere classified
CPT/HCPCS: 74176

== ENCOUNTER 2020-08-18 19:14 | Emergency (ER) | payer OTHER ==
[2020-08-19] MEDS ORDERED: Ketorolac Tromethamine 30 MG/ML VIAL ONE (00:45)
[2020-08-19] MEDS ORDERED: Acetaminophen 500 MG TAB ONE (00:56)
--- NOTE | 2020-08-19 08:38 | CT ---
PRELIMINARY REPORT/[facility]/EMERGENCY AFTER HOURS PROCEDURE EXAM: CT Pelvis With Intravenous Contrast. CLINICAL HISTORY: 35-year-old male patient presents ER with complaint of rectal pain for the last few days. The patient reports that he is concerned he has a rectal abscess as he has had rectal abscess in the past. Patient denies any fever, body aches, chills, nausea, vomiting, abdominal pain, urinary complaints, t esticular pain or swelling, or other symptoms at this time. TECHNIQUE: Axial computed tomography images of the pelvis with intravenous contrast. DLP equals 363.91. CTD is 11.7. CONTRAST: None. COMPARISON: None provided. FINDINGS: HIP JOINTS: No dislocation. The joint spaces are normal. BONES: No acute fracture or focal osseous lesion. No suspicious focal osseous lesions. SOFT TISSUES: No evidence for bowel obstruction. No CT evidence for appendicitis or diverticulitis. A 6.0 x 2.1 x 3.3 cm right perianal abscess visualized extending from the right perianal region aroun d the 7 to 8 o'clock position. IMPRESSION: A 6.0 x 2.1 x 3.3 cm right perianal abscess visualized extending from the right perianal region aroun d the 7 to 8 o'clock position. ELECTRONICALLY SIGNED BY: Nitish Baptiste MD Aug 19, 2020 1:31:29 AM SENIOR PROGRAM ANALYST This report is intended for review by the ordering physician only, in accordance of law. If you recei ve this report in error, please call [facility] at [phone]. FINAL REPORT Exam: Pelvic CT with contrast HISTORY: Rectal pain. History of perirectal abscess. COMPARISON: None. FINDINGS: Visualized alimentary canal and pelvis structures are grossly unremarkable. No acute abnormality. There is a right perirectal abscess, measuring 1.6 x 1.6 cm. Abscess extends into the medial right gl uteal region. This focus of extension measures 2.3 x 1.4 cm. There are no lytic or blastic lesions in the osseous structures. IMPRESSION: 1. This report is in agreement with initial report by [facility]. 2. Right rectal/perirectal abscess with extension into the perianal region. Transcribed Date/Time: 08/19/2020 8:52 AM
[2020-08-19] MEDS ORDERED: Iopamidol-370 76% 500 ML 1 ML ONE (12:26)
== END 2020-08-19 03:30 | disposition home or self-care (01) ==
LOC: ERS 19:14
DX: K61.0 Anal abscess (principal)
CPT/HCPCS: 46050; 72193; 96374; J1885; Q9967

== ENCOUNTER 2021-11-14 12:09 | Emergency (ER) | payer OTHER, SELFPAY ==
[2021-11-14] MEDS ORDERED: Ketorolac Tromethamine 30 MG/ML VIAL ONE (12:34)
[2021-11-14] MEDS ORDERED: Ondansetron PF 4 MG/2 ML Vial ONE (12:34)
[2021-11-14 12:51] LABS: #Eosinphils 0.2 thou/uL (0.0-0.7); #Lymphocytes 3.7 thou/uL (1.20-3.40); #Monocytes 0.6 thou/uL (0.11-0.59); #Neutrophils 5.2 thou/uL (1.40-6.50); %Basophils 0.4 % (0.0-1.0); %Eosinophils 1.8 % (0.0-10.0); %Lymphocytes 38.3 % (21.0-51.0); %Neutrophils 53.5 % (42.0-75.0); Hemoglobin 15.8 g/dL (14.0-18.0); Mean Corpuscular HGB CONC 34.4 g/dL (32.0-36.0); Mean Corpuscular Hemoglobin 32.3 pg (27.0-31.0); Mean Corpuscular Volume 93.8 fL (78.0-98.0); Mean Platelet Volume 7.7 fL (7.4-10.4); Platelet Count 244 thou/uL (130-400); RBC Distribution Width 11.7 % (11.5-14.5); Red Blood Cell (RBC) Count 4.91 mill/uL (4.70-6.10); White Blood Cell (WBC) Count 9.7 thou/uL (4.8-10.8)
[2021-11-14 13:12] LABS: ALT (SGPT) 41 U/L (8-55); AST (SGOT) 22 U/L (5-34); Alkaline Phosphatase 71 U/L (40-110); Anion Gap 13 mmol/L (10-20); BUN (Urea Nitrogen) 15 mg/dL (8.9-20.6); Bilirubin, Total 0.9 mg/dL (0.2-1.2); Calc. Creatinine Clearance 0 mL/min (70-130); Calcium 9.5 mg/dL (7.8-10.44); Carbon Dioxide 26 mmol/L (22-29); Chloride 105 mmol/L (98-107); Globulin 2.5 g/dL (2.4-3.5); Glucose 230 mg/dL (70-105); Potassium 3.5 mmol/L (3.5-5.1); Protein, Total 6.5 g/dL (6.0-8.3); Sodium 140 mmol/L (136-145)
[2021-11-14 14:37] LABS: Bacteria/HPF None Seen HPF (None Seen); Bilirubin Negative (Negative); Blood, Urine 2+ (Negative); Clarity Turbid (Clear); Glucose, Urine (Dipstick) 300 mg/dL (Negative); Ketone, Urine Negative (Negative); Leukocyte Negative Leu/uL (Negative); Nitrite Negative (Negative); Protein, Urine (Dipstick) Negative (Neg-Trace); RBC/HPF 21-50 HPF (0-3); Specific Gravity, Urine 1.016 (1.002-1.036); Squamous Epithelial None Seen HPF (0-3); Urobilinogen Normal mg/dL (Less than 2); WBC/HPF 0-3 HPF (0-3)
== END 2021-11-14 15:35 | disposition home or self-care (01) ==
LOC: ERS 12:09
DX: N23 Unspecified renal colic (principal); R73.9 Hyperglycemia, unspecified
CPT/HCPCS: 74176; 80053; 81003; 81015; 85025; 87086; 94760; 96361; 96374; 96375; J1885; J2405